=== PATIENT | female | born 1940 | race Caucasian/White ===

== ENCOUNTER 2018-01-15 03:35 | Emergency (ER) | payer MEDICARE, BC ==
[~2018-01-15] VITALS: Ht 170.2 cm; Wt 72.0 kg
[~2018-01-15 03:35] MED LIST: AMLO2.5T2 PO; ASPI-529 PO; ATOR20TA PO; FERR134T2 PO; HYDR-565 PO; HYDR25TA4 PO; LISI40TA4 PO; METF750T PO; METO25TA6 PO; MULT-1085 PO
[2018-01-15 03:39] VITALS: BP 170/103
[2018-01-15] MEDS ORDERED: ondansetron/PF 4mg/2ml inj IV ONE (03:50)
[2018-01-15] MEDS ORDERED: morphine 4 MG/ML inj SYRINge IV ONE (03:50)
[2018-01-15] MEDS ORDERED: ketorolac trometh. 30mg/ml inj. IV ONE (03:50)
[2018-01-15] MEDS ORDERED: haloperidol lactate 5mg/ml inj IM ONE ×2 (04:20→04:25)
[2018-01-15] MEDS ORDERED: TRAM50TA2 PO (05:03)
[2018-01-15] MEDS ORDERED: mag hydrox/Alum hydrox/simeth 30ml oral suspension PO ONE (05:10)
== END 2018-01-15 05:18 | disposition home or self-care (01) ==
LOC: ER 03:35
DX: M54.2 Cervicalgia (principal); M19.90 Unspecified osteoarthritis, unspecified site; I10 Essential (primary) hypertension; K21.9 Gastro-esophageal reflux disease without esophagitis; E03.9 Hypothyroidism, unspecified; G89.29 Other chronic pain; Z98.890 Other specified postprocedural states; Z88.5 Allergy status to narcotic agent; Z88.8 Allergy status to other drugs, medicaments and biological substances; Z79.82 Long term (current) use of aspirin; Z79.84 Long term (current) use of oral hypoglycemic drugs; Z79.899 Other long term (current) drug therapy
CPT/HCPCS: 72125; 96372; 96374; 96375; 99284; J1630; J2270; J2405